=== PATIENT | male | born 1995 | race Caucasian/White ===

== ENCOUNTER → 2022-06-13 10:30 | Outpatient (CLI) | payer OTHER, SELFPAY ==
[2022-06-13 12:16] LABS: Urine N gonorrhoeae NOT DETECTED
[2022-06-13 12:17] LABS: Urine Chlamydia NOT DETECTED
== END ==
PROVIDERS: Visit Provider Registered Nurse
DX: R30.0 Dysuria (principal)
CPT/HCPCS: 87086; 87491; 87591